=== PATIENT | female | born 1970 | race Caucasian/White ===

== ENCOUNTER → 2016-07-30 | Outpatient (CLI) | payer OTHER ==
--- NOTE | 2016-07-30 14:29 | KCIC ---
Bilateral digital screening mammograms with CAD: HISTORY Routine screening COMPARISON Comparison is made to previous examination dated 01/04/2013. FINDINGS Breast density category C. The skin and nipples show no abnormalities. No abnormal lymph nodes are seen in the axilla. The breast parenchyma shows heterogeneous density. There are no dominant masses, suspicious calcifications or architectural distortions. IMPRESSION No evidence of malignancy. Recommend routine annual mammographic screening. This study was interpreted with the benefit of Computerized Aided Detection (CAD). Mammography is not 100% sensitive in detecting breast cancer. Therefore, a self breast exam and a clinical breast exam are very important. A negative mammogram does not negate a clinically suspicious finding and should not result in a delay in biopsying a clinically suspicious abnormality. BI-RADS category 1. Negative. This patient's information has been entered into a reminder system for the patient to be notified with the results of this examination and a target date for her next mammograms. Electronically signed by: Jennyfer Padilla MD (Jul 30, 2016 14:28:58)
== END | disposition home or self-care (01) ==
LOC: KCIC MAMMO 10:39
PROVIDERS: ATTEND Physician Assistant Medical
DX: Z12.31 Encounter for screening mammogram for malignant neoplasm of breast (principal)
CPT/HCPCS: G0202; 77067

== ENCOUNTER → 2016-08-08 | Outpatient (CLI) | payer OTHER ==
--- NOTE | 2016-08-08 12:39 | KCIC ---
PROCEDURE PA and lateral chest radiograph. HISTORY Cough, fever, and pain with inspiration for 5 days. COMPARISON None. FINDINGS Cardiac silhouette appears within normal limits for size. No focal infiltrate, pleural effusion, or pneumothorax is seen. IMPRESSION No acute cardiopulmonary process. Electronically signed by: Bill Paulson MD (Aug 08, 2016 12:37:37)
== END | disposition home or self-care (01) ==
LOC: KCIC 11:56
PROVIDERS: ATTEND Physician Assistant Medical
DX: R50.9 Fever, unspecified (principal); R07.1 Chest pain on breathing
CPT/HCPCS: 71020

== ENCOUNTER → 2017-04-03 | Outpatient (CLI) | payer OTHER ==
--- NOTE | 2017-04-03 16:41 | KCIC ---
Pelvic ultrasound Clinical Indication:Pelvic pain, right greater the left.. . TRANSABDOMINAL SCAN Uterus measures about 8.7 cm longitudinal by 4.7 cm AP by 5.1 cm wide. Endometrium poorly seen. Right ovary measures 4.2 cm long axis and contains a cyst which could be further evaluated endovaginally. Left ovary not well seen. TRANSVAGINAL SCAN Uterus: Measurements are provided above. Endometrium: Complex fluid identified within the endometrial canal. Right ovary: 2.9 cm cyst. Positive blood flow to the right ovary. Left ovary: 2.2 cm long axis without a dominant cyst. Positive blood flow. There is a complex nodular structure within the cervix measuring 16 mm diameter without apparent hypervascularity. Free fluid: None visualized. IMPRESSION: 1. Moderate complex fluid accumulation in the endometrial canal. Considerations include endometrial hemorrhage, inflammatory endometritis or infection. Endometrial mass or polyp is also possible. 2. Small complex appearing nodule at the cervix of uncertain significance. 3. Right ovarian cyst. 4. Short-term ultrasound follow-up could further evaluate these findings. Electronically signed by: Bill Oquendo MD (04/03/2017 4:37 PM) [facility]
== END | disposition home or self-care (01) ==
LOC: KCIC US 14:41
PROVIDERS: ATTEND Physician Assistant
DX: N83.201 Unspecified ovarian cyst, right side (principal); R58 Hemorrhage, not elsewhere classified
CPT/HCPCS: 76830; 76856

== ENCOUNTER → 2019-12-22 | Outpatient (CLI) | payer OTHER ==
[~2019-12-22] MED LIST: ALBU2.5V8 INH; BUSP15TA PO; CETI10TA74 PO; ESCITALOPRAM OX20 MG PO; FLUT100B IH; MONT10TA49 PO; OMEP20TA8 PO
[2019-12-22 10:29] LABS: BILIRUBIN,URINE NEGATIVE (NEG); CLARITY,URINE CLEAR; COLOR,URINE YELLOW; NITRITE,URINE NEGATIVE (NEG); PH,URINE 6.5 (<5.0-8.0); PROTEIN,URINE NEGATIVE (NEG-TRACE); UROBILINOGEN,URINE 0.2 mg/dL (0.2 mg/dL)
[2019-12-22 10:29] LABS: BASO % 1 % (0-3); EOS # 0.1 x10^3/uL (0.0-0.7); EOS % 2 % (0-3); HEMATOCRIT 34.9 % (36.0-47.0); HEMOGLOBIN 12.3 g/dL (12.0-15.5); LYMPH # 1.8 x10^3/uL (1.0-4.8); LYMPH % 31 % (24-48); MEAN CORPUSCULAR HEMOGLOBIN 34 pg (25-35); MEAN CORPUSCULAR HGB CONC 35 g/dL (31-37); MEAN CORPUSCULAR VOLUME 96 fL (79-100); MONO # 0.6 x10^3/uL (0.0-1.1); MONO % 10 % (0-9); NEUT # 3.1 x10^3/uL (1.8-7.7); NEUT % 56 % (31-73); PLATELET COUNT 324 x10^3/uL (140-400); RED BLOOD COUNT 3.63 x10^6/uL (3.50-5.40); RED CELL DISTRIBUTION WIDTH 12.7 % (11.5-14.5); WHITE BLOOD COUNT 5.6 x10^3/uL (4.0-11.0)
[2019-12-22 10:37] LABS: BACTERIA,URINE FEW /HPF (0-FEW); SQUAMOUS EPITHELIAL CELL,UR OCC /LPF
[2019-12-22 10:42] LABS: ALBUMIN 3.6 g/dL (3.4-5.0); ALBUMIN/GLOBULIN RATIO 1.2 (1.0-1.7); CALCIUM 7.9 mg/dL (8.5-10.1); CREATININE 1.1 mg/dL (0.6-1.0); GFR 52.8; POTASSIUM 4.1 mmol/L (3.5-5.1); TOTAL BILIRUBIN 0.5 mg/dL (0.2-1.0); TOTAL PROTEIN 6.7 g/dL (6.4-8.2)
--- NOTE | 2019-12-22 11:21 | NUR ---
INSTRUCTED ON USE OF IS AND RETURN DEMONSTRATION GIVEN. INFORMED TO BRING BACK DAY OF SURGERY. INSTRUCTED BOWEL PREP TO BE GIVEN PER DR FRAGA'S OFFICE. VOICES UNDERSTANDING OF ABOVED
--- NOTE | 2019-12-22 14:07 | RAD ---
AP and Lateral Views of the Chest 12/22/2019 10:04 AM Indication: Reason: PRE-OP EVAL / Spl. Instructions: / History: Comparison: Chest radiograph August 08, 2016 Findings: There is no focal consolidation or infiltrate identified. The cardiomediastinal silhouette is within normal limits. There is no evidence of pneumothorax or pleural effusion. No acute osseous abnormalities are identified. Impression: No evidence of acute cardiopulmonary process. Electronically signed by: Uziel Sharma MD (12/22/2019 2:04 PM) [id number]
== END | disposition home or self-care (01) ==
LOC: SURGPAT 09:45
PROVIDERS: ATTEND Obstetrics & Gynecology
DX: Z01.818 Encounter for other preprocedural examination (principal); Z11.59 Encounter for screening for other viral diseases; J45.909 Unspecified asthma, uncomplicated
CPT/HCPCS: 36415; 71046; 80053; 81001; 85025; 87086; U0003

== ENCOUNTER → 2019-12-23 | Outpatient (CLI) | payer OTHER ==
[~2019-12-23] MED LIST changes: +CETI10TA24 PO; -CETI10TA74 PO
[2019-12-23 15:44] LABS: BILIRUBIN,URINE NEGATIVE (NEG); CLARITY,URINE CLEAR; COLOR,URINE YELLOW; NITRITE,URINE NEGATIVE (NEG); PH,URINE 6.5 (<5.0-8.0); PROTEIN,URINE NEGATIVE (NEG-TRACE); UROBILINOGEN,URINE 0.2 mg/dL (0.2 mg/dL)
[2019-12-23 15:52] LABS: SQUAMOUS EPITHELIAL CELL,UR FEW /LPF
[2019-12-23 15:54] LABS: BACTERIA,URINE 0 /HPF (0-FEW); RBC,URINE 0 /HPF (0-2); WBC,URINE OCC /HPF (0-4)
== END ==
LOC: LAB 15:18
PROVIDERS: ATTEND Obstetrics & Gynecology
DX: Z01.818 Encounter for other preprocedural examination (principal); J45.909 Unspecified asthma, uncomplicated
CPT/HCPCS: 81001

== ENCOUNTER 2019-12-29 09:30 | Observation (INO) | payer OTHER ==
[~2019-12-29] VITALS: Ht 162.6 cm; Wt 93.8 kg
[2019-12-29] VITALS (8 sets, daily range): BP systolic 94–122; BP diastolic 48–72
[~2019-12-29 09:30] MED LIST changes: +CLINDAMYCIN 900MG PREMIX 50 ML IV ONE; +DEXAMETHASONE SOD PHOS 4 MG/ML VIAL ONE; +GLYCOPYRROLATE 1 MG/5 ML VIAL. ONE; +HYDROmorphone 2 MG/ML VIAL IV PRN; +IV RINGERS,LACTATED 1000ML 1,000 ML IV SCH; +KETOROLAC 30 MG/ML VIAL. ONE; +LIDOCAINE 1% PF 2 ML VIAL. ID PRN; +LIDOCAINE 2% PF 5 ML VIAL. ONE; +MIDAZOLAM HCL/PF 2 MG/2 ML VIAL. ONE; +MORPHINE SULFATE 2 MG/ML VIAL. IV PRN; +NEOSTIGMINE METHYLSULFATE 5 MG/5 ML SYRINGE. ONE; +ONDANSETRON PF 4 MG/2 ML VIAL. ONE; +PROCHLORPERAZINE 10 MG/2 ML VIAL. IV PRN; +PROPOFOL 10 MG/ML (20ML) VIAL. IV ONE; +ROCURONIUM 50 MG/5 ML VIAL. ONE; +fentaNYL PF VIAL 100 MCG/2 ML VIAL IV PRN; +fentaNYL PF VIAL 100 MCG/2 ML VIAL ONE
[2019-12-29] MEDS ORDERED: ESTROGENS, CONJ VAGINAL CREAM 30GM TUBE. ONE (11:10)
[2019-12-29] MEDS ORDERED: INDIGOTINDISULFONATE SODIUM 40 MG/5 ML AMPUL. ONE (11:10)
[2019-12-29] MEDS ORDERED: BUPIVACAINE-EPI 0.25%-1:200000 MPF 30 ML VIAL. INJ ONE (12:16)
[2019-12-29] MEDS ORDERED: ROCURONIUM 50 MG/5 ML VIAL. ONE (12:51)
[2019-12-29] MEDS ORDERED: fentaNYL PF VIAL 100 MCG/2 ML VIAL ONE ×3 (13:11→15:19)
--- NOTE | 2019-12-29 14:26 | PDOC ---
BRIEF OPERATIVE NOTE Date: Dec 29, 2019 Pre-Op Diagnosis pelvic pain and endometriosis Post-Op Diagnosis same plus adhesions Procedure Performed LAVH/BSO/lysis of adhesions Surgeon Dr. Xiao Cervantes Livestock Inspector MONO Kim Anesthesiologist Dr. Mendes Anesthesia Type: General Blood Loss 50cc IV Fluid 700cc Urine Output 150cc clear and concentrated via grant Specimens Obtained cervix, uterus, bilateral tubes and ovaries with IUD Findings right tube and ovary adhesed to posterior uterine wall; left tube and ovary adhesed to left pelvic wall and descending colon and IP ligament; normal uterus otherwise but significant pelvic adhesive disease with endometriosis Complications none, but with adhesions on lefft side with ovary and peeled off bowel and sidewall counseled on ovarian reminant syndrome Operative Note [id number] XIAO CERVANTES MD Dec 29, 2019 14:26
[2019-12-29] MEDS ORDERED: MAGNESIUM HYDROXIDE 2,400 MG/30 ML ORAL.SUSP. PO PRN (14:30)
[2019-12-29] MEDS ORDERED: MAG HYDROX/ALUMINUM HYD/SIMETH 30 ML ORAL.SUSP PO PRN (14:30)
[2019-12-29] MEDS ORDERED: diphenhydrAMINE 50 MG/ML VIAL IV PRN (14:30)
[2019-12-29] MEDS ORDERED: MORPHINE SULFATE 2 MG/ML VIAL. IV PRN (14:30)
[2019-12-29] MEDS ORDERED: CALCIUM CARBONATE 500 MG TAB.CHEW PO PRN (14:30)
[2019-12-29] MEDS ORDERED: ONDANSETRON PF 4 MG/2 ML VIAL. IV PRN (14:30)
[2019-12-29] MEDS ORDERED: diphenhydrAMINE HCL 25 MG CAPSULE PO PRN (14:30)
[2019-12-29] MEDS ORDERED: HYDROcodone/APAP 5/325MG 1 TAB TABLET PO PRN (14:30)
[2019-12-29] MEDS ORDERED: ALBUTEROL SULFATE 2.5 MG/3 ML NEBU. INH PRN (14:30)
[2019-12-29] MEDS ORDERED: ESTRADIOL WEEKLY 0.1 MG PATCH. TD SCH (14:30)
[2019-12-29] MEDS ORDERED: NALOXONE 0.4 MG/ML VIAL. IV PRN (14:30)
[2019-12-29] MEDS ORDERED: ZOLPIDEM 5 MG TABLET. PO PRN (14:30)
[2019-12-29] MEDS ORDERED: LACTULOSE 20 GM/30 ML SOLUTION. PO PRN (14:30)
[2019-12-29] MEDS ORDERED: 0.9 % SODIUM CHLORIDE 10 ML DISP.SYRIN. IV PRN (14:30)
[2019-12-29] MEDS: fentaNYL PF VIAL 100 MCG/2 ML VIAL IV PRN ×3 (14:34→15:21)
--- NOTE | 2019-12-29 15:59 | OP ---
DATE OF SURGERY: 12/29/2019 PREOPERATIVE DIAGNOSES: Known endometriosis with some pelvic adhesive disease with pelvic pain. POSTOPERATIVE DIAGNOSES: Known endometriosis with some pelvic adhesive disease with pelvic pain with adhesions. PROCEDURES: Laparoscopic-assisted vaginal hysterectomy, bilateral salpingo-oophorectomy with lysis of adhesions. SURGEON: Maureen Cervantes MD. ADJUNCT MATHEMATICS INSTRUCTOR: MONO Ashby. ANESTHESIOLOGIST: German Mendes MD. ANESTHESIA: General. ESTIMATED BLOOD LOSS: 50 mL. URINE OUTPUT: 150 mL, clear via Powre catheter and concentrated. INTRAVENOUS FLUIDS: 700 mL of crystalloid. SPECIMENS: Cervix, uterus, bilateral tubes and ovaries with IUD in the uterus. FINDINGS: Her right tube and ovary were adhesed to the posterior uterine wall. Left tube and ovary were adhesed to the left pelvic wall and the descending colon and the IP ligament on the left. Otherwise, she had a normal uterus, but she did have significant pelvic adhesive disease with evidence of endometriosis, especially on the left side. 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 DESCRIPTION OF PROCEDURE: This patient was taken to the operating room, where general anesthesia was placed. The patient was placed in a dorsal lithotomy position in [facility]. The patient's abdomen and vagina were prepped and draped in the normal sterile fashion and a Power catheter had been inserted under sterile technique. Upon my arrival, a timeout was performed. Once everyone agreed on patient, site, procedure, antibiotics, the procedure was begun. A bivalve speculum was placed in the patient's vagina. A single-tooth tenaculum was used to grasp the anterior lip of the cervix. A 10 mL of 0.25% Marcaine with epinephrine was used to circumferentially inject around the cervix for both hemodissection and hemostatic purposes later. The ValtchDiversityDoctor uterine manipulator was placed through the endocervical os, locked on the single-tooth tenaculum, and the bivalve speculum was then removed. Top gloves were discarded and changed. Attention was then turned to the abdomen, where a small supraumbilical skin incision was made with the scalpel. A curved Vita was used to dissect through the subcuticular layer to the fascia. The 5 mm Visiport was used to directly enter the abdominal cavity. Opening patient pressure was 4-5 mmHg. Carbon dioxide gas was used to then appropriately insufflate the abdominal cavity to maintain a pressure of 15 mmHg. The patient was placed in Trendelenburg position. Right and left lower quadrant ports were placed under direct visualization. There was a right site already there from a prior laparoscopy that was used, making a small incision and placing the 5 mm disposable trocar in under direct visualization using 4-5 mL of air to insufflate the cuff on the trocar. I then did move the camera laterally and looked at the umbilical port. It was good and insufflated that cuff as well. The left lower quadrant port was placed after transilluminating the abdominal wall, finding an area clear of any vasculature and placing that when in under direct visualization and 4-5 mL of air was placed in this one as well. At this point, there was noted to be significant left-sided adhesions, the right tube and ovary to the posterior uterus immediately. So, I could see the ureter coursing low on the right side after removing the bowel out of the way and knew that we could get the right tube and ovary out on the uterus because she wanted it out, so the left side is where we started our adhesiolysis. First, I peeled down the omentum and sigmoid off the left sidewall down to the level of the uterosacral, elevated the left tube and ovary where I could get a portion of that ovary up and out, and I was able to peel off some of the epiploic fat over the sigmoid off of the IP ligament on the left. The ovary itself was adhesed to the actual colon. I was able to find a plane and get in there and try to peel it up. I grabbed the ovary and was able to peel it off. Now, with the ovary stuck directly to the sigmoid, there may be some remnant syndrome in pieces of ovarian wall on that sigmoid as well, so she will be counseled on this, but I was able to get the ovary up and peel the fat off of the IP ligament to find the ureter on the left. There was definitely some still endometriosis on the left as well, but I was able to go high under the tube and ovary, staying right there, using the LigaSure to cauterize and cut and go over towards the uterus and then literally staying right on the uterus, hugging it, going through under the tube and ovary to get the uterines on that side. On the right side again, I went right under the ovary, which was actually on the back side of the uterus, but I could see the ureter on the sidewall still, I got it and then crossed it around on the right as well and then using the [place] to elevate the bladder flap, it was elevated and the monopolar hook was used to cut and take down the bladder anteriorly sharply and bluntly, first cutting it and then peeling it back. Once the bladder was down, I was able to get the uterine vessels on the right side and then like I said on the left side, I just hugged that uterus and went down the side of the uterus very close, going through the round that way as well and then below it, making sure the bladder was down and met that bladder that I started on the right on the left. Once the bladder was assured to be down, I went down on both sides to the level of the uterosacral. Posteriorly, there were no adhesions, just the tube and ovary of the right tube and ovary to the posterior uterus, but no bowel adhesions and the posterior cul-de-sac was clear. The bladder was down. So, once I got the uterine vessels and was able to go down the sides of the uterus and had the cervix on both sides, the uterus was free and blanched. Again, there was a significant adhesiolysis to the left side and possible remnant syndrome with the ovary peeled off the sigmoid, the descending colon on the left, but other than that, it was not actively bleeding, just a raw surface from the adhesions on the left and the right side looked good. So, at this point, all instruments were removed from the abdomen and attention was turned vaginally. The single tooth and Valtchev were removed. A weighted speculum was placed in the patient's vagina. Thyroid Bart clamps were placed on the anterior and posterior lips of the cervix respectively. A scalpel was used to make a circumferential incision in the cervix. An open Ray-Ozzy 4 x 4 was used to gently push up the anterior bladder peritoneum and the anterior cul-de-sac was digitally and bluntly entered. The 4 x 4 was removed and a curved Terrie was placed in the anterior cul-de-sac. The cervix was elevated and the posterior cul-de-sac was sharply entered with the curved Kerns scissors. A #0 Vicryl stitch was used to secure the posterior peritoneum here to the vaginal cuff. It was tagged with a curved Vita clamp. The needle was cut and passed off. The short weighted speculum was removed and replaced with the long weighted Rustam speculum in the posterior cul-de-sac. At this point, curved Elodia clamps x 2 were placed on the patient's left uterosacral ligament, where they were doubly clamped with curved Heaneys, cut with curved Kerns scissors, and suture ligated x 2 with 0 Vicryl. Second one was taken through the vaginal cuff, securing uterosacral ligament to the vaginal cuff, tagged with a straight Vita clamp, and the needle was cut and passed off. This was done exactly the same on the right side. The uterosacrals were doubly clamped with curved Heaneys, cut with curved Kerns scissors, suture ligated x 2 with 0 Vicryl. Second one was taken through the vaginal cuff, securing the uterosacral ligament to the vaginal cuff, tagging it with a straight Vita clamp, cutting and passing the needle off. The remaining pedicle on both sides was delineated with the Mixter clamp just to take around the remaining pedicle and the vaginal LigaSure was used to cauterize and cut the remaining pedicle on both sides. The cervix, uterus, bilateral tubes and ovaries were delivered in total. The right one was stuck to the posterior uterus, left one was hanging and it was passed off for permanent pathology. At this point, a sponge stick was used to examine the pedicles. Once they appeared to be hemostatic, the long Rustam speculum was removed from the posterior cul-de-sac and the short weighted vaginal speculum was placed in the vagina. A long Allis clamp was used to grasp the anterior bladder peritoneum and 2-0 Vicryl was taken through this, the left uterosacral ligament, posterior peritoneum, and right uterosacral ligament, thus closing the peritoneum in a pursestring-like fashion. Once this was done, the right and left uterosacral tags were clipped. A full length 2-0 Vicryl was taken to close the cuff in an anterior to posterior running locked fashion and tied to that posterior cuff tag. Everything was hemostatic and looked great. All sponge, lap, and needle counts were correct x 2 by OR personnel. So, the vaginal part was completed. All gloves were discarded and changed. A second look was taken from above, where she was placed back in Trendelenburg. The overhead lights were dimmed and gas was reinsufflated. There was no active bleeding. The left adhesions were just raw like I said earlier, but no active bleeding, so I did take Isacc and put over this. Tisseel was placed over the cuff with excellent results. The right and left pericolic gutters were clear and the cul-de-sac remained dry. I irrigated first, then placed Tisseel over there and then placed Isacc at the very, very end. Once this was done and the cul-de-sac remained dry and the white powdery substance remained there as well with no welling up over the adhesions. The right and left lower quadrant ports, the gas was taken out of the trocar cuff. Those were removed under direct visualization. They were hemostatic. The umbilical port, it was also deflated, but it was left in and gas was released from this port. Once it was done, it was removed, all 3 port sites were closed with 4-0 nylon at the skin and injected with 0.25% Marcaine with epinephrine at the end. The patient was then awakened from anesthesia and was brought to recovery room in stable condition. MAUREEN CREVANTES MD DR: JASMIN/rafael JOB#: [id number] / [id number]
[2019-12-29] MEDS: SIMETHICONE 80 MG TAB.CHEW PO PRN (17:14)
[2019-12-29] MEDS: oxyCODONE/APAP 5/325 1 TAB TABLET PO PRN ×2 (17:14→21:07)
[2019-12-29] MEDS ORDERED: ESTRADIOL WEEKLY 0.1 MG PATCH. TD ONE (17:30)
[2019-12-29] MEDS: BUDESONIDE 0.5 MG/2 ML NEBU. NEB SCH (20:00)
[2019-12-29] MEDS ORDERED: MONTELUKAST SODIUM 10 MG TABLET. PO SCH (21:00)
[2019-12-29] MEDS: busPIRone 5 MG TABLET. PO SCH (21:06)
[2019-12-30] VITALS: BP 102/64
[2019-12-30] MEDS: oxyCODONE/APAP 5/325 1 TAB TABLET PO PRN ×3 (00:56→11:23)
[2019-12-30 04:00] VITALS: BP 107/61
[2019-12-30 07:20] LABS: CALCIUM 8.2 mg/dL (8.5-10.1); CREATININE 1.1 mg/dL (0.6-1.0); GFR 52.8
[2019-12-30] MEDS: BUDESONIDE 0.5 MG/2 ML NEBU. NEB SCH (07:29)
[2019-12-30] MEDS ORDERED: PANTOPRAZOLE 40 MG TABLET.DR. PO SCH (07:30)
[2019-12-30] MEDS ORDERED: FLUTICASONE FUROATE 100 MCG IH SCH (09:00)
[2019-12-30] MEDS ORDERED: CETIRIZINE HCL 10 MG TABLET. PO SCH (09:00)
[2019-12-30 09:09] VITALS: BP 138/77
[2019-12-30] MEDS: SIMETHICONE 80 MG TAB.CHEW PO PRN (10:08)
[2019-12-30] MEDS: busPIRone 5 MG TABLET. PO SCH (10:09)
--- NOTE | 2019-12-30 11:20 | PDOC ---
SURGICAL PROGRESS NOTE Subjective Doing well without complaints. Back pain is already improved after surgery. Voiding without catheter, tolerating regular diet without N/v. Scant VB Vital Signs Vital Signs Date Time Temp Pulse Resp B/P (MAP) Pulse Ox O2 Delivery O2 Flow Rate FiO2 12/30/19 09:09 98.0 94 18 138/77 (97) 97 Room Air 98.0 12/29/19 18:27 95.0 I&O Intake and Output 12/30/19 07:00 Intake Total 1000 ml Output Total 1900 ml Balance -900 ml Intake Oral 300 ml IV Total 700 ml Output Urine Total 1850 ml Estimated Blood Loss 50 ml PATIENT HAS A CASTANON: No General: Alert, Oriented X3, Cooperative, No acute distress Heart: Regular rate Abdomen: Soft, Other (all port sites c/d/i) Extremities: No clubbing, No cyanosis, No edema Skin: No rashes, No breakdown Neuro: Normal speech Psych/Mental Status: Mental status NL, Mood NL Labs Laboratory Tests Test 12/29/19 09:53 12/30/19 06:15 Bedside Urine HCG, Qualitative Hcg negative (Negative) Hematocrit 31.3 % (36.0-47.0) Sodium Level 135 mmol/L (136-145) Potassium Level 4.0 mmol/L (3.5-5.1) Chloride Level 101 mmol/L (98-107) Carbon Dioxide Level 27 mmol/L (21-32) Anion Gap 7 (6-14) Blood Urea Nitrogen 12 mg/dL (7-20) Creatinine 1.1 mg/dL (0.6-1.0) Estimated GFR (Cockcroft-Gault) 52.8 Glucose Level 106 mg/dL (70-99) Calcium Level 8.2 mg/dL (8.5-10.1) Laboratory Tests Test 12/30/19 06:15 Hematocrit 31.3 % (36.0-47.0) Sodium Level 135 mmol/L (136-145) Potassium Level 4.0 mmol/L (3.5-5.1) Chloride Level 101 mmol/L (98-107) Carbon Dioxide Level 27 mmol/L (21-32) Anion Gap 7 (6-14) Blood Urea Nitrogen 12 mg/dL (7-20) Creatinine 1.1 mg/dL (0.6-1.0) Estimated GFR (Cockcroft-Gault) 52.8 Glucose Level 106 mg/dL (70-99) Calcium Level 8.2 mg/dL (8.5-10.1) I have reviewed the following labs, vitals, nursing Assessment/Plan POD#1 s/p LAVH/BSO/adhesiolysis Routine PO Care d/c to home later today NPV x 6 weeks light/limited activity x 2 weeks already has [place] at home OK for OTC ibuprofen as needed also NO driving on narcotics keep scheduled one week post op appt in office call or return sooner for any other questions or concerns not limited to but including pain unrelieved with pain meds, increased or unexplained vaginal bleeding or T>100.4 Justicifation of Admission Dx: Justifications for Admission: Justification of Admission Dx: Yes Comments: postop MAUREEN FRAGA MD Dec 30, 2019 11:20
--- NOTE | 2019-12-30 11:23 | PDOC3 ---
Discharge Summary Visit Information Date of Admission: Dec 29, 2019 Date of Discharge: Dec 30, 2019 Final Diagnosis pelvic adhesions, endometriosis and pelvic pain Brief Hospital Course Allergies Allergies Coded Allergies Type Severity Reaction Last Updated Verified Cephalosporins Allergy Severe HIVES 12/22/19 Yes Sulfa (Sulfonamide Antibiotics) Allergy Severe HIVES, FEVER 12/22/19 Yes Vital Signs Vital Signs Date Time Temp Pulse Resp B/P (MAP) Pulse Ox O2 Delivery O2 Flow Rate FiO2 12/30/19 09:09 98.0 94 18 138/77 (97) 97 Room Air 98.0 12/29/19 18:27 95.0 Lab Results Laboratory Tests Test 12/29/19 09:53 12/30/19 06:15 Bedside Urine HCG, Qualitative Hcg negative (Negative) Hematocrit 31.3 % (36.0-47.0) Sodium Level 135 mmol/L (136-145) Potassium Level 4.0 mmol/L (3.5-5.1) Chloride Level 101 mmol/L (98-107) Carbon Dioxide Level 27 mmol/L (21-32) Anion Gap 7 (6-14) Blood Urea Nitrogen 12 mg/dL (7-20) Creatinine 1.1 mg/dL (0.6-1.0) Estimated GFR (Cockcroft-Gault) 52.8 Glucose Level 106 mg/dL (70-99) Calcium Level 8.2 mg/dL (8.5-10.1) Laboratory Tests Test 12/30/19 06:15 Hematocrit 31.3 % (36.0-47.0) Sodium Level 135 mmol/L (136-145) Potassium Level 4.0 mmol/L (3.5-5.1) Chloride Level 101 mmol/L (98-107) Carbon Dioxide Level 27 mmol/L (21-32) Anion Gap 7 (6-14) Blood Urea Nitrogen 12 mg/dL (7-20) Creatinine 1.1 mg/dL (0.6-1.0) Estimated GFR (Cockcroft-Gault) 52.8 Glucose Level 106 mg/dL (70-99) Calcium Level 8.2 mg/dL (8.5-10.1) Brief Hospital Course Ms. Castillo is a 49 old female who presented with known endometriosis and pelvic adhesions. Underwent LAVH/BSO and lysis of adhesions. She has had an unremarkable postoperative course is voiding without catheter, tolerating PO well. will be discharged to home later today Assessment Assessment POD#1 s/p LAVH/BSO/adhesiolysis Routine PO Care d/c to home later today NPV x 6 weeks light/limited activity x 2 weeks already has [place] at home OK for OTC ibuprofen as needed also NO driving on narcotics keep scheduled one week post op appt in office call or return sooner for any other questions or concerns not limited to but including pain unrelieved with pain meds, increased or unexplained vaginal bleeding or T>100.4 Discharge Information Condition at Discharge: Stable Follow Up: Weeks Disposition/Orders: D/C to Home Scheduled Buspirone Hcl (Buspirone Hcl) 15 Mg Tablet, 15 MG PO TID for ANXIETY, (Reported) Entered as Reported by: LUIS CARLOS BUI on 12/22/19 1024 Last Taken: Unknown Dose on 12/29/19 0700 Last Action: Converted on 12/29/191431 by MAUREEN FRGAA Cetirizine Hcl (Zyrtec) 10 Mg Tablet, 10 MG PO D for ALLERGIES, (Reported) Entered as Reported by: LUIS CARLOS BUI on 12/22/19 1025 Last Action: Continued on 12/29/19 143 by MAUREEN FRAGA Escitalopram Oxalate (Escitalopram Oxalate) 20 Mg Tablet, 20 MG PO DAILY for ANTI-DEPRESSANT, Ref 0 (Reported) Entered as Reported by: LUIS CARLOS BUI on 12/22/19 1024 Last Action: HELD on 12/29/191431 by MAUREEN FRAGA Fluticasone Furoate (Arnuity Ellipta) 100 Mcg Blst.w.dev, 100 MCG IH DAILY for ASTHMA, (Reported) Entered as Reported by: LUIS CARLOS BUI on 12/22/19 1027 Last Action: Converted on 12/29/191431 by MAUREEN FRAGA Montelukast Sodium (Montelukast Sodium Tablet ) 10 Mg Tablet, 10 MG PO HS for FOR ASTHMA, Ref 0 (Reported) Entered as Reported by: LUIS CARLOS BUI on 12/22/19 1025 Last Action: Continued on 12/29/192 by MAUREEN FRAGA Omeprazole (Omeprazole) 20 Mg Tablet.dr, 20 MG PO DAILY for GERD, (Reported) Entered as Reported by: LUIS CARLOS BUI on 12/22/19 1026 Last Taken: Unknown Dose on 12/29/19 0700 Last Action: Converted on 12/29/191431 by MAUREEN FRAGA Scheduled PRN Albuterol Sulfate (Proair Hfa) 8.5 Gm Hfa.aer.ad, 1 PUFF INH PRN Q6HRS PRN for SHORTNESS OF BREATH, (Reported) Entered as Reported by: LUIS CARLOS LINDORAH on 12/22/19 1026 Last Taken: Unknown Dose on 12/29/19 07 Last Action: Continued on 12/29/191431 by MAUREEN FRAGA Patient Instructions Patient Instructions POD#1 s/p LAVH/BSO/adhesiolysis Routine PO Care d/c to home later today NPV x 6 weeks light/limited activity x 2 weeks already has [place] at home OK for OTC ibuprofen as needed also NO driving on narcotics keep scheduled one week post op appt in office call or return sooner for any other questions or concerns not limited to but including pain unrelieved with pain meds, increased or unexplained vaginal bleeding or T>100.4 Justicifation of Admission Dx: Justifications for Admission: Justification of Admission Dx: Yes MAUREEN FRAGA MD Dec 30, 2019 11:22
[2019-12-30 13:45] VITALS: BP 115/71
--- NOTE | 2019-12-30 13:45 | NUR ---
Discharge instructions given to patient. Pt verbalized understanding, denied questions. Pt discharged home with spouse.
--- NOTE | 2019-12-30 18:06 | PATHOLOGY ---
[facility] Accession Number: [id number] . 01 Material submitted: . uterus - CERVIX, UTERUS, BILATERAL FALLOPIAN TUBES AND OVARIES, AND IUD. Modifiers: bilateral . 01 Clinical history: . Menorrhagia, endometriosis, pelvic pain, dysmenorrhea . 02 Diagnosis: Uterus and attached right fallopian tube and ovary and left adnexa, laparoscopic-assisted vaginal hysterectomy with bilateral salpingo-oophorectomy: - Uterine serosal adhesions. - Endocervical gland tunnel cluster, endocervix. - Low grade chronic endometritis with focal stromal deciduoid change. - Adenomyosis, uterine corpus, sub-basal, focal. - Adhesion of right adnexa to posterior uterine serosa with focal paratubal foreign body (suture) granulomatous reaction. - Cystic follicle of right ovary. - Status post previous left salpingectomy and left ovarian cystectomy. - Adhesion of left ovary to posterior uterine serosa. - Partially-luteinized cyst of left ovary. . Intrauterine device (Gross only): - See gross description. . (JPM:mm; 12/30/2019) [facility] 12/30/2019 1735 Local . 02 Comment: There is no atypia or evidence of malignancy. . (JPM:mm; 12/30/2019) . 02 Electronically signed: . Shane Friedman MD, Pathologist NPI- [id number] . 01 Gross description: . The specimen is received in formalin labeled "Jennyfer Castillo, cervix, uterus, bilateral tubes and ovaries, IUD". Received is a 71 g, 7.7 x 4.7 x 3.7 cm uterus with attached cervix and attached right adnexa, which is adhesed to the posterior aspect of the uterus. The left adnexa is not grossly identified. The uterine serosa is pink-monroy in appearance with a moderate amount of adhesions on the fundal and posterior aspect. The 1.2 cm cervical os is surrounded by pale monroy, smooth to pink-monroy, granular ectocervical mucosa. The uterus is oriented using the peritoneal reflection and the anterior paracervical margin is inked black. The uterus is opened laterally to reveal a pink-monroy, slightly corrugated endocervical canal measuring 2.7 cm in length. The endometrial cavity is triangular measuring 4.5 cm in length by 1.4 cm in width. The endometrium is pink-monroy, glistening to granular in appearance and measures 0.1 cm in thickness. Serial sectioning reveals a monroy-pink, trabeculated myometrium measuring up to 1.9 cm in thickness with no grossly distinct nodules or lesions. . The right adnexa consists of a fimbriated fallopian tube measuring 4.1 cm in length by up to 0.5 cm in diameter attached to a 1.8 x 1.5 x 0.4 cm ovary. Sectioning through the fallopian tube reveals a patent lumen and the fallopian tube appears grossly unremarkable. Sectioning through the ovary reveals a unilocular cystic structure measuring 1.0 cm filled with blood-tinged fluid. The remaining cut surfaces display pale monroy, normal ovarian stroma. . Near the left cornu, there is attached pink-virgen soft tissue measuring 3.2 x 1.7 x 1.0 cm in greatest dimensions. Sectioning through this tissue reveals pink-virgen to pink-monroy cut surfaces with no grossly distinct tube or ovary. . Also received within the specimen container is a white T-shaped IUD measuring 3.3 cm in length by 3.3 cm in width. A gross photograph is taken. The specimen is submitted representatively as follows: . A1 12:00 cervix A2 6:00 cervix A3 serosal adhesions A4 anterior endomyometrium A5 posterior endomyometrium A6 right adnexa A7 public relations representative sections of soft tissue near left cornu. . Gross photographs are taken. (CAA; 12/29/2019) QA/QA 12/29/2019 1756 Local . 02 Pathologist provided ICD-10: N72, N71.9, N80.0, N83.01, N83.202 . 02 CPT . 122168 Specimen Comment: A courtesy copy of this report has been sent to [phone], [phone] Specimen Comment: [id number] Specimen Comment: Report sent to / DR CHAN Performed at: [address], [place] [id number] MD Jeremy Monique MD Phone: [phone] Performed at: 02 [facility] [address] [place], [place] [id number] MD Shane Friedman MD Phone: [phone]
== END 2019-12-30 14:05 | disposition home or self-care (01) ==
LOC: SURG 09:30 → 3 NORTH 15:16
PROVIDERS: ADMIT Obstetrics & Gynecology; ATTEND Obstetrics & Gynecology
DX: N80.1 Endometriosis of ovary (principal); N73.6 Female pelvic peritoneal adhesions (postinfective)
CPT/HCPCS: 36415; 58552; 80048; 81025; 85014; 86850; 86900; 86901; 94640; 94760; A7015; G0378; G0379; J1100; J1885; J1956; J2250; J2405; J2704; J2710; J3010; J3480; J3490; J7030; J7120; J7613

== ENCOUNTER 2021-01-18 12:09 | Emergency (ER) | payer OTHER ==
[~2021-01-18] VITALS: Ht 162.6 cm; Wt 89.5 kg
[~2021-01-18 12:09] MED LIST changes: -CETI10TA24 PO; +CETI10TA74 PO; -CLINDAMYCIN 900MG PREMIX 50 ML IV ONE; -DEXAMETHASONE SOD PHOS 4 MG/ML VIAL ONE; -GLYCOPYRROLATE 1 MG/5 ML VIAL. ONE; -HYDROmorphone 2 MG/ML VIAL IV PRN; -IV RINGERS,LACTATED 1000ML 1,000 ML IV SCH; -KETOROLAC 30 MG/ML VIAL. ONE; -LIDOCAINE 1% PF 2 ML VIAL. ID PRN; -LIDOCAINE 2% PF 5 ML VIAL. ONE; -MIDAZOLAM HCL/PF 2 MG/2 ML VIAL. ONE; -MORPHINE SULFATE 2 MG/ML VIAL. IV PRN; -NEOSTIGMINE METHYLSULFATE 5 MG/5 ML SYRINGE. ONE; -ONDANSETRON PF 4 MG/2 ML VIAL. ONE; -PROCHLORPERAZINE 10 MG/2 ML VIAL. IV PRN; -PROPOFOL 10 MG/ML (20ML) VIAL. IV ONE; -ROCURONIUM 50 MG/5 ML VIAL. ONE; -fentaNYL PF VIAL 100 MCG/2 ML VIAL IV PRN; -fentaNYL PF VIAL 100 MCG/2 ML VIAL ONE
[2021-01-18 13:04] LABS: BASO % 1 % (0-3); EOS # 0.2 x10^3/uL (0.0-0.7); EOS % 4 % (0-3); HEMATOCRIT 34.7 % (36.0-47.0); LYMPH # 1.9 x10^3/uL (1.0-4.8); LYMPH % 37 % (24-48); MEAN CORPUSCULAR HEMOGLOBIN 33 pg (25-35); MEAN CORPUSCULAR HGB CONC 35 g/dL (31-37); MEAN CORPUSCULAR VOLUME 95 fL (79-100); MONO # 0.5 x10^3/uL (0.0-1.1); MONO % 10 % (0-9); NEUT # 2.5 x10^3/uL (1.8-7.7); NEUT % 48 % (31-73); PLATELET COUNT 255 x10^3/uL (140-400); RED BLOOD COUNT 3.67 x10^6/uL (3.50-5.40); RED CELL DISTRIBUTION WIDTH 13.2 % (11.5-14.5); WHITE BLOOD COUNT 5.2 x10^3/uL (4.0-11.0)
--- NOTE | 2021-01-18 13:11 | PHYS DOC ---
Past Medical History Past Medical History: No Pertinent History Past Surgical History: Cholecystectomy, , Hysterectomy, Other Additional Past Surgical Histo: ovarian cyst removal, laproscopy General Adult EDM: Chief Complaint: HEADACHE HPI: HPI: 50-year-old female presenting the emergency department today with a sudden severe headache that started around 10:00 AM. She describes it as a thunderclap headache. She has a history of migraines but describes this as characte ristically different than her typical migraine. It happened all of a sudden it was a severe headache. It was a sharp shooting pain in the frontal region which was nonradiating. She informed her manager radiation how she felt and after they saw her they felt like she looked mildly pale and so they called an ambulance. Her blood pressure was elevated by EMS and here. Patient did not come in as a code stroke. EMS did not find this patient as a stroke. Review of systems negative for chest pain shortness of breath abdominal pain vomiting diaphoresis. Positive for pale appearance. Positive for headache. All other review of systems negative. Heart Score: C/O Chest Pain: No Risk Factors: Risk Factors: DM, Current or recent (<one month) smoker, HTN, HLP, family history of CAD, obesity. Risk Scores: Score 0 - 3: 2.5% MACE over next 6 weeks - Discharge Home Score 4 - 6: 20.3% MACE over next 6 weeks - Admit for Clinical Observation Score 7 - 10: 72.7% MACE over next 6 weeks - Early Invasive Strategies Current Medications: Current Medications Medications (Trade) Dose Ordered Sig/Amos Start Time Stop Time Status Last Admin Dose Admin Metoclopramide HCl (Reglan) 10 mg 1X ONCE 01/18/21 13:15 01/18/21 13:16 UNV Allergies: Allergies: Allergies Coded Allergies Type Severity Reaction Last Updated Verified Cephalosporins Allergy Severe HIVES 12/22/19 Yes Sulfa (Sulfonamide Antibiotics) Allergy Severe HIVES, FEVER 12/22/19 Yes Physical Exam: PE: Constitutional: Well developed, well nourished, no acute distress, non-toxic appearance. [] HENT: Normocephalic, atraumatic, bilateral external ears normal, oropharynx moist, no oral exudates, nose normal. [] Eyes: PERRLA, EOMI, conjunctiva normal, no discharge. [] Neck: Normal range of motion, no tenderness, supple, no stridor. [] Cardiovascular:Heart rate regular rhythm, no murmur [] Lungs & Thorax: Bilateral breath sounds clear to auscultation [] Abdomen: Bowel sounds normal, soft, no tenderness, no masses, no pulsatile masses. [] Skin: Warm, dry, no erythema, no rash. [] Back: No tenderness, no CVA tenderness. [] Extremities: No tenderness, no cyanosis, no clubbing, ROM intact, no edema. [] Neurologic: Mental status: Awake oriented and alert x3 Cranial nerves: Extraocular movements intact, eyebrows aparna bilaterally, smile symmetric(on initial exam the patient had a symmetric smile which was performed within 10 minutes of arrival.)(Second exam shows facial drooping on the right.) uvula elevation nl, shoulder shrug intact bilaterally, tongue protrusion normal Clear speech. Normal [id number]. Sensation: equal and normal in all extremities Strength: 5/5 in upper extremities bilaterally No pronator drift. 4+ out of 5 strength in the lower extremities.( describes the symptoms as being present before her headache and more chronic in nature.) Psychologic: Affect normal, judgement normal, mood normal. [] Current Patient Data: Labs: Laboratory Tests Test 01/18/21 12:42 Glucose (Fingerstick) 167 mg/dL (70-99) H Vital Signs: Vital Signs Date Time Temp Pulse Resp B/P (MAP) Pulse Ox O2 Delivery O2 Flow Rate FiO2 01/18/21 12:12 98.1 60 18 189/70 (86) 97 Room Air 98.1 EKG: EKG: [] EKG shows sinus rhythm with a regular rate. ST segments congruent. Not suggestive of acute ischemia. Radiology/Procedures: Radiology/Procedures: [] Course & Med Decision Making: Course & Med Decision Making Pertinent Labs and Imaging studies reviewed. (See chart for details) [] 50-year-old female presenting with a sudden thunderclap headache with dizziness. Her headache not suggestive of previous migraines. On arrival the patient is afebrile with a normal heart rate. Respiratory rate within normal limits. Satting well on room air. Initial blood pressure 189/70. This came down without intervention in the emergency department. Head CT is unremarkable for acute findings. CT angiogram shows no large vessel occlusion. I spoke with Dr. Latham minute 1322 and discussed the case consulting him for the possibility of administration of TPA. My largest concern as TPA being contraindicated given the patient's sudden thunderclap headache. Head CT is unremarkable so this excludes most subarachnoid hemorrhages although/albeit there is a small portion of subarachnoid hemorrhage that are visible on CAT scan initially. Dr. Coughlin in exam room at about 1340 recommending no TPA at this time. Drs. Pickett recommends no TPA at this time. tPA contraindicated because of clinical symptoms suggestive of subarachnoid hemorrhage. Dr. Pickett thinks this is very low likelihood to be a stroke. He believes it to be a complex migraine. He recommends discharge. I went to evaluate the patient the patient's symptoms have completely resolved after IV Reglan and Benadryl with fluids. We will discharge her to follow-up with her PCP. I will recommend she gets an MRI within the next day or [address] regular doctor Dr. Hollingsworth. Kath Disclaimer: Kath Disclaimer: This electronic medical record was generated, in whole or in part, using a voice recognition dictation system. Departure Departure Impression: Primary Impression: Headache Additional Impressions: Dizziness Facial droop Disposition: HOME / SELF CARE / HOMELESS Condition: STABLE Referrals: TURNER HOLLINGSWORTH MD (PCP) NIHSS Stroke Scale NIH Stroke Scale: NIH Stroke Scale Response (Comments) Value Level of Consciousness: 0 Alert/Responsive 0 LOC Questions: 0 Answers both correctly 0 LOC Commands: 0 Performs both tasks 0 Best Gaze: 0 Normal 0 Visual: 0 No visual loss 0 Facial Palsy: 1 Minor paralysis 1 Motor - Left Arm 0 No drift 0 Motor - Right Arm 0 No drift 0 Motor - Left Leg 1 Drift but can hold 1 Motor: Right Leg 1 Drift but can hold 1 Limb Ataxia: 0 Absent 0 Sensory: 1 Mid to moderate loss 1 Best Language: 0 Normal 0 Dysathria: 0 Normal 0 Extinction and Inattention: 0 Normal 0 Total 4 NIHSS Stroke Scale NIH Stroke Scale: NIH Stroke Scale Response (Comments) Value Level of Consciousness: 0 Alert/Responsive 0 LOC Questions: 0 Answers both correctly 0 LOC Commands: 0 Performs both tasks 0 Best Gaze: 0 Normal 0 Visual: 0 No visual loss 0 Facial Palsy: 0 Normal, symmetrical 0 Motor - Left Arm 0 No drift 0 Motor - Right Arm 0 No drift 0 Motor - Left Leg 0 No drift 0 Motor: Right Leg 0 No drift 0 Limb Ataxia: 0 Absent 0 Sensory: 0 No loss 0 Best Language: 0 Normal 0 Dysathria: 0 Normal 0 Extinction and Inattention: 0 Normal (at about 1500) 0 Total 0 CARO PRASAD MD Jan 18, 2021 13:11
[2021-01-18 13:14] LABS: CALCIUM 8.8 mg/dL (8.5-10.1); CREATININE 0.9 mg/dL (0.6-1.0); GFR 66.3; POTASSIUM 4.1 mmol/L (3.5-5.1)
[2021-01-18] MEDS ORDERED: METOCLOPRAMIDE 10 MG TABLET. PO ONE (13:15)
[2021-01-18] MEDS ORDERED: diphenhydrAMINE 50 MG/ML VIAL IVP ONE (13:15)
[2021-01-18] MEDS ORDERED: IV NORMAL SALINE 1000ML BAG 1,000 ML IV ONE (13:15)
--- NOTE | 2021-01-18 13:19 | RAD ---
CT scan of the head without contrast 01/18/2021 Clinical History: Headache and weakness. Code stroke. Technique: Unenhanced, contiguous, 5 mm axial sections were obtained through the head. One or more of the following individualized dose reduction techniques were utilized for this study: 1. Automated exposure control. 2. Adjustment of the mA and/or kV according to patient size. 3. Use of iterative reconstruction technique. Findings: The ventricles and sulci are within normal limits in size and configuration. No acute paren chymal abnormality is seen. No extra-axial fluid collection is noted. No skull fracture is seen. Impression: No acute intracranial abnormality is seen. This result was discussed with Dr. Knapp at 1314 hours. FOR INTERNAL CODING PURPOSES RESULT CODE: (C) Electronically signed by: Raymond Knox MD (01/18/2021 1:17 PM) [id number]
[2021-01-18] MEDS ORDERED: IOHEXOL 350 MG/ML 100 ML VIAL. IV ONE (13:30)
[2021-01-18] MEDS ORDERED: CONTRAST GIVEN. MC PRN (13:30)
--- NOTE | 2021-01-18 13:36 | RAD ---
CTA of the head and neck with contrast 01/18/2021 Clinical history: Headache. Weakness. Code stroke. Technique: After the intravenous administration of 75 cc of Omnipaque 350, contiguous, 0.625 mm axial sections were obtained through the upper chest, neck and head. Multiplanar 3-D MIP and volume render ed 3-D reconstructed images were obtained. One or more of the following individualized dose reduction techniques were utilized for this study: 1. Automated exposure control. 2. Adjustment of the mA and/or kV according to patient size. 3. Use of iterative reconstruction technique. Findings: Comparison is made to patient's CT scan of the head performed earlier today. The origins of the brachiocephalic, left common carotid and left subclavian arteries from the thoraci c aortic arch are patent. The origin of the right common carotid artery and both vertebral arteries a re patent. The common carotid arteries are patent. Very mild atheromatos plaque formation is seen involving both carotid bifurcations. No hemodynamically significant stenosis is seen. The internal carotid arteries within the neck are patent. The the left vertebral artery is slightly dominant. Both vertebral arteries demonstrate normal antegr tracey flow. No area stenosis or occlusion is seen. Intracranially the petrous, cavernous and supraclinoid portions of both internal carotid arteries are within normal limits. The basilar artery is patent. The anterior, middle and posterior cerebral tadeo lizzette and their branches are within normal limits. No area of stenosis or occlusion is seen. No intrac ranial aneurysm is noted. The major dural venous sinuses are patent. No area of abnormal contrast enhancement is seen. No acute soft tissue abnormality is seen involving the neck. Degenerative changes are seen involving the unco vertebral and facet joints throughout the cervical disc spaces. Impression: 1. Very mild atheromatous plaque formation is seen involving both carotid bifurcations. No hemodynami larissa significant stenosis is seen. 2. No intracranial stenosis or area of occlusion is seen. Stenosis calculation for CTA are based on measurement of the distal internal carotid artery diameter in accordance with the NASCET methodology. This result was discussed with Dr. Knapp. Electronically signed by: Raymond Knox MD (01/18/2021 1:34 PM) [id number]
[2021-01-18 13:48] LABS: PROTHROMBIN TIME PATIENT 11.3 SEC (11.7-14.0)
[2021-01-18] MEDS ORDERED: METOCLOPRAMIDE HCL 10 MG/2 ML VIAL. IVP ONE (14:00)
[2021-01-18] MEDS ORDERED: METOCLOPRAMIDE HCL 10 MG/2 ML VIAL. ONE (14:00)
--- NOTE | 2021-01-18 14:44 | RAD ---
XR CHEST 1V History: Reason: HEADACHE AND POSSIBLE STROKE / Spl. Instructions: / History: Comparison: December 22, 2019 Findings: No consolidation or pleural effusion. Normal heart size. No pneumothorax. Impression: 1. No acute cardiopulmonary process. Electronically signed by: Woodrow Carrera DO (01/18/2021 2:42 PM) [id number]
[2021-01-18 15:14] VITALS: BP 135/63
--- NOTE | 2021-01-18 15:29 | CONS ---
DATE OF CONSULTATION: 01/18/2021 REFERRING PHYSICIAN: Dr. Knapp. REASON FOR CONSULTATION: Evaluate for stroke. HISTORY OF PRESENT ILLNESS: The patient is a very pleasant 50-year-old woman who began to experience headache at 10:00 this morning while at work. The headache built over 5-10 minutes to be quite intense. This is not like her usual migraine, which are usually not severe, but rather minor. She was also then developing some numbness of the right hand and leg. She had some drooping of her right face after she arrived in the Emergency Room. She underwent a CT scan of the head, which was negative. I was contacted by the Emergency Room when she was 3 hours and 25 minutes out from her last known normal. I came to the Emergency Room to evaluate the patient. Her headache was already subsiding. She had not received any medicine for treatment. She was not complaining of neurologic symptoms anymore, which have improved. She was accompanied by her who is a captain for the [employer] in [facility]. PAST MEDICAL HISTORY: 1. Generalized anxiety disorder. 2. Gastroesophageal reflux disease. ALLERGIES: CEPHALOSPORINS. MEDICATIONS:PRIOR TO ADMISSION: Escitalopram, buspirone 30 mg twice per day, omeprazole. FAMILY HISTORY: Noncontributory. SOCIAL HISTORY: She is . She has grown children. She does not smoke tobacco. She does not drink excessive alcohol or use recreational drugs. She lives with her and 2 [place]ds. REVIEW OF SYSTEMS: She has a left frontal headache. She has had no change of vision or hearing. She has been able to chew and swallow. There has been no cognitive change. She does not have shortness of breath, cough or cold. She does not have chest or abdominal pain. Does not have bone or joint pain. There has been no fever or rash. She did have a little bit of nausea, but minimal. No genitourinary complaint. She had transient numbness. She has feeling of bilateral leg weakness. This has been present for some time. No gastrointestinal or genitourinary complaint. Does not complain of easy bruising, bleeding or swelling. PHYSICAL EXAMINATION: VITAL SIGNS: The blood pressure was 189/70, pulse 60, respirations 18, temperature 98.1 degrees Fahrenheit orally. Oximetry was 97% on room air. Her weight was 89.5 kilograms, height 64 inches with a calculated body mass index of 33.9. NEUROLOGIC: She was alert, awake and cooperative. Speech was fluent and clear. She had a good fund of recent and remote knowledge. Attention and concentration was intact. She appeared well-groomed and well nourished. She was fully oriented. Examination of the cranial nerves revealed visual jaimes were full to confrontation. Extraocular movements were intact. The eyes were conjugate. Pursuit movements were smooth and saccadic eye movements were without dysmetria. Pupils were 4 mm. Funduscopic exam did not reveal papilledema, exudate or hemorrhage. Facial sensation was intact bilaterally. The muscles of mastication and facial expression were powerful symmetrically. She smiles spontaneously often and the smile was symmetric. When she was asked to smile, she did not raise the right side of her mouth as much. Hearing was intact to finger rub bilaterally. The palate arched symmetrically and the tongue was midline with full motion. Sternocleidomastoid and trapezius were powerful. Muscle bulk and tone was normal. There was no arm drift or abnormal movement. Power was full and symmetric in the upper and lower extremities. Reflexes were 2/4 and symmetric in the upper and lower extremities. The toes were downgoing bilaterally. Coordination testing with [id number], heel to hutchins, fine motor and rapid alternating movements was well performed. The sensory exam was intact to pain, light touch, proprioception, graphesthesia, cold thermal and vibration. There was no extinction to double simultaneous stimulation. She is able to stand and bear weight. She could stand on heels or toes. She was able to take several steps. The Romberg stance was negative. Auscultation of the carotid arteries did not reveal a bruit. HEART: Heart rhythm was regular, without a murmur. EXTREMITIES: Peripheral pulses were symmetric in the hands and feet. There was no edema or cyanosis. LABORATORY DATA: CBC was performed on 01/18/2021 revealing a normal white blood cell count, hemoglobin and platelet count. Hematocrit was diminished at 34.7. Chemistries were performed on 01/18/2021. This revealed normal electrolytes, BUN and creatinine. Glucose was elevated to 177. Calcium was normal. Troponin was not elevated. PT/INR was 0.8 and aPTT was 25. DIAGNOSTIC RESULTS: CT scan of the brain was performed without contrast on 01/18/2021 revealing no acute intracranial process. CT angiogram of the head and neck was performed with and without contrast on 01/18/2021 revealing very mild atheromatous plaque formation and both carotid bifurcations. No hemodynamically significant stenosis was seen. No intracranial stenosis or area of occlusion seen. No mention of any aneurysm. IMPRESSION: The patient is a very pleasant 50-year-old woman who developed a headache earlier today building to severe in 5-10 minutes. I am relieved that her neurologic exam was normal. She had some transient neurologic symptoms, which were associated with aura of migraine and were short-lived. I do not see neurologic deficits. I am relieved the CT scan of the head as well as a CT arteriogram of the head and neck were normal. This would be more in the realm of a migraine with aura. I do not feel this is a stroke. RECOMMENDATIONS: I would treat the headache symptomatically. Once headache can be controlled, then she may be dismissed from a neurologic perspective. If she is having an increased headache frequency, we would be happy to follow up in Neurology to better treat. Appreciate being involved in her care. DANNY DR: Raciel TID: [id number] CC: TURNER HOLLINGSWORTH MD
== END 2021-01-18 15:25 | disposition home or self-care (01) ==
LOC: ER 12:09
DX: G43.909 Migraine, unspecified, not intractable, without status migrainosus (principal); R42 Dizziness and giddiness; R29.810 Facial weakness; Z88.1 Allergy status to other antibiotic agents; Z88.2 Allergy status to sulfonamides
CPT/HCPCS: 36415; 70450; 70496; 70498; 71045; 80048; 82962; 84484; 85025; 85610; 85730; 93005; 96361; 96374; 96375; 99285; J1200; J2765; J7030; Q9967